=== PATIENT | female | born 1940 | race Two or more races ===

== ENCOUNTER 2016-08-26 01:57 | Inpatient (IN) | payer OTHER ==
[~2016-08-26] VITALS: Ht 160 cm; Wt 90.7 kg
[2016-08-26] MEDS ORDERED: ASPI81TA2 PO (02:02)
[2016-08-26] MEDS ORDERED: ATEN25TA PO (02:02)
[2016-08-26] MEDS ORDERED: ASPIRIN 81 MG TAB.CHEW PO ONE (02:30)
[2016-08-26 02:52] LABS: BASOPHILS # (AUTO) 0.1 /CMM (0.0-0.2); BASOPHILS % (AUTO) 0.5 % (0.0-2.0); DIFF TOTAL % 100 %; EOSINOPHILS # (AUTO) 0.1 /CMM (0.0-0.7); HEMATOCRIT 35 % (33-45); MEAN CORPUSCULAR HEMOGLOBIN 30 PG (26.0-33.0); MEAN CORPUSCULAR HGB CONC 34 g/dl (31.0-36.0); MEAN CORPUSCULAR VOLUME 89 fL (82-100); MONOCYTES # (AUTO) 0.7 /CMM (0.1-1.30); MONOCYTES % (AUTO) 5.7 % (2.0-12.0); NEUTROPHILS # (AUTO) 9.1 /CMM (1.8-8.9); NEUTROPHILS % (AUTO) 75.8 % (43.0-81.0); PLATELET COUNT (AUTO) 314 /CMM (150-450); RED BLOOD CELL COUNT(AUTO) 3.95 MIL/uL (4.0-5.2); WHITE BLOOD COUNT (AUTO) 12.1 K/uL (4.3-11.0)
[2016-08-26] MEDS ORDERED: ASPIRIN 81 MG TAB.CHEW ONE (03:04)
[2016-08-26 03:10] LABS: INR 0.93 (0.87-1.13)
[2016-08-26 03:16] LABS: TROPONIN I < 0.017 ng/mL (0.00-0.056)
[2016-08-26 03:33] LABS: ANION GAP 17 (5-14); CALCIUM, SERUM 8.8 mg/dL (8.5-10.1); CARBON DIOXIDE 22 mmol/L (21-32); CHLORIDE 105 mmol/L (98-107); CREATININE 1.8 mg/dL (0.6-1.3); GLUCOSE 125 mg/dL (74-106); POTASSIUM 4.3 mmol/L (3.5-5.1); SODIUM SERUM 139 mmol/L (136-145); UREA NITROGEN, BLOOD 43 mg/dL (7-18)
[2016-08-26] MEDS ORDERED: IV NS 0.9% 1,000 ML BAG IV ONE (04:00)
[2016-08-26] MEDS ORDERED: IV SET PRIMARY 1 EA INFUS.SET MC ONE (04:03)
[2016-08-26] MEDS ORDERED: IV NS 0.9% 1,000 ML ONE (04:03)
[2016-08-26] MEDS ORDERED: IOHEXOL-350 100 ML VIAL IV ONE (04:16)
[2016-08-26] MEDS ORDERED: IV NS 0.9% 250 ML IV ONE (04:16)
[2016-08-26] MEDS ORDERED: ZOLPIDEM TARTRATE 5 MG TABLET PO PRN (07:30)
[2016-08-26] MEDS ORDERED: MAGNESIUM HYDROXIDE 30 ML UDC PO PRN (07:30)
[2016-08-26] MEDS ORDERED: MAG HYDROX/AL HYDROX/SIMETH 30 ML UDC PO PRN (07:30)
[2016-08-26] MEDS ORDERED: ACETAMINOPHEN 325 MG TABLET PO PRN (07:30)
[2016-08-26] MEDS ORDERED: ONDANSETRON HCL/PF 4 MG/2 ML VIAL IVP PRN (07:30)
[2016-08-26] MEDS ORDERED: NITROGLYCERIN 0.4 MG/TAB BOTTLE SL PRN (07:30)
[2016-08-26 08:00] VITALS: BP 111/65
[2016-08-26] MEDS: PANTOPRAZOLE 40 MG TABLET.DR PO SCH (10:03)
[2016-08-26 11:52] LABS: PHOSPHORUS 3.1 mg/dL (2.5-4.9)
[2016-08-26] MEDS ORDERED: IV SET PRIMARY PUMP SET 1 EA INFUS.SET MC ONE (13:06)
[2016-08-26] MEDS: ATORVASTATIN 40 MG TABLET PO SCH ×2 (13:18→21:19)
[2016-08-26] MEDS: ASPIRIN 81 MG TAB.CHEW PO SCH (13:18)
[2016-08-26 14:25] LABS: KETONES,URINE TRACE (NEGATIVE); LEUKOCYTE ESTERASE ,URINE 1+ (NEGATIVE)
[2016-08-26 14:43] LABS: ADD UA MICROSCOPIC YES
[2016-08-26 15:04] LABS: ADD URINE CULTURE YES
[2016-08-26 16:00] VITALS: BP 118/54
[2016-08-26 20:00] VITALS: BP 108/60
[2016-08-26 20:22] VITALS: BP 108/60
[2016-08-27] VITALS (8 sets, daily range): BP systolic 107–126; BP diastolic 59–65
[2016-08-27 06:59] LABS: BASOPHILS % (AUTO) 0.4 % (0.0-2.0); DIFF TOTAL % 100 %; EOSINOPHILS # (AUTO) 0.2 /CMM (0.0-0.7); EOSINOPHILS % (AUTO) 2.5 % (0.0-6.0); HEMATOCRIT 33 % (33-45); HEMOGLOBIN 11.4 g/dL (11.5-14.8); LYMPHOCYTES # (AUTO) 2.1 /CMM (0.8-4.8); LYMPHOCYTES % (AUTO) 26.8 % (20.0-44.0); MEAN CORPUSCULAR HEMOGLOBIN 31 PG (26.0-33.0); MEAN CORPUSCULAR HGB CONC 34 g/dl (31.0-36.0); MEAN CORPUSCULAR VOLUME 89 fL (82-100); MONOCYTES # (AUTO) 0.3 /CMM (0.1-1.30); MONOCYTES % (AUTO) 4.4 % (2.0-12.0); NEUTROPHILS # (AUTO) 5.2 /CMM (1.8-8.9); NEUTROPHILS % (AUTO) 65.9 % (43.0-81.0); PLATELET COUNT (AUTO) 262 /CMM (150-450); RED BLOOD CELL COUNT(AUTO) 3.72 MIL/uL (4.0-5.2); WHITE BLOOD COUNT (AUTO) 7.9 K/uL (4.3-11.0)
[2016-08-27] MEDS: PANTOPRAZOLE 40 MG TABLET.DR PO SCH (07:02)
[2016-08-27 07:03] LABS: CALCIUM, SERUM 8.8 mg/dL (8.5-10.1); CREATININE 0.9 mg/dL (0.6-1.3); POTASSIUM 4.3 mmol/L (3.5-5.1)
[2016-08-27] MEDS: ASPIRIN 81 MG TAB.CHEW PO SCH (08:31)
[2016-08-27] MEDS ORDERED: ASPIRIN 325 MG TABLET PO SCH (09:00)
[2016-08-27] MEDS ORDERED: POLYETHYLENE GLYCOL 3350 17 GM POWD.PACK PO PRN (09:30)
[2016-08-27] MEDS ORDERED: BISACODYL SUPP (10 MG) 10 MG/SUPP.RECT SUPP.RECT RC PRN (09:30)
[2016-08-27] MEDS ORDERED: REGADENOSON 0.4 MG/5 ML DISP.SYRIN IVP ONE (10:30)
[2016-08-27] MEDS: DOCUSATE SODIUM 100 MG CAPSULE PO SCH ×2 (11:30→16:54)
[2016-08-27] MEDS: ATENOLOL 25 MG TABLET PO SCH (11:31)
[2016-08-27] MEDS: ENOXAPARIN SODIUM 40 MG/0.4 ML DISP.SYRIN SQ SCH (11:32)
[2016-08-27] MEDS ORDERED: IV SET PRIMARY PUMP SET 1 EA INFUS.SET MC ONE (11:55)
[2016-08-27] MEDS ORDERED: SECONDARY IV SET 1 EA INFUS.SET MC ONE (11:55)
[2016-08-27] MEDS ORDERED: IV NS 0.9% 250 ML IV ONE (11:56)
[2016-08-27] MEDS: CEFTRIAXONE 1 G in IV D5W 50 ML IV SCH (12:08)
[2016-08-27] MEDS: ATORVASTATIN 40 MG TABLET PO SCH (22:33)
[2016-08-28 00:21] VITALS: BP 129/72
[2016-08-28 04:25] VITALS: BP 104/64
[2016-08-28 07:01] VITALS: BP 125/71
[2016-08-28] MEDS: PANTOPRAZOLE 40 MG TABLET.DR PO SCH (07:30)
[2016-08-28] MEDS: DOCUSATE SODIUM 100 MG CAPSULE PO SCH ×2 (08:00→16:41)
[2016-08-28] MEDS: ASPIRIN 81 MG TAB.CHEW PO SCH (08:00)
[2016-08-28] MEDS: ATENOLOL 25 MG TABLET PO SCH (08:01)
[2016-08-28] MEDS: ENOXAPARIN SODIUM 40 MG/0.4 ML DISP.SYRIN SQ SCH (08:21)
[2016-08-28] MEDS ORDERED: ASPIRIN 81 MG TAB.CHEW PO SCH (09:00)
[2016-08-28] MEDS: CEFTRIAXONE 1 G in IV D5W 50 ML IV SCH (10:47)
== END 2016-08-28 17:32 | disposition home or self-care (01) | DRG 460 ==
LOC: ER 01:59 → TELE 06:23
PROVIDERS: ADMIT Nurse Practitioner Acute Care; ATTEND Internal Medicine
DX: N17.0 Acute kidney failure with tubular necrosis (principal); E44.0 Moderate protein-calorie malnutrition; N39.0 Urinary tract infection, site not specified; E66.01 Morbid (severe) obesity due to excess calories; Z68.35 Body mass index [BMI] 35.0-35.9, adult; E78.5 Hyperlipidemia, unspecified; N18.9 Chronic kidney disease, unspecified; I12.9 Hypertensive chronic kidney disease with stage 1 through stage 4 chronic kidney disease, or unspecified chronic kidney disease; E86.0 Dehydration; K21.9 Gastro-esophageal reflux disease without esophagitis; K59.00 Constipation, unspecified; D72.829 Elevated white blood cell count, unspecified; R00.2 Palpitations; M94.0 Chondrocostal junction syndrome [Tietze]
CPT/HCPCS: 36415; 71010-TC; 76700-TC; 80048-TC; 80061-TC; 81000-TC; 83735-TC; 84100-TC; 84484-TC; 85025-TC; 85730-TC; 87081-TC; 87086-TC; 93307-TC; 97001-TC; A4606; A9502; J0696; J1650; J2785; J7030; J7050; J7060; Q9967; Z7610